=== PATIENT | male | born 1955 | race American Indian/Alaskan Native ===

== ENCOUNTER 2018-10-02 05:24 | Inpatient (IN) | payer MEDICARE, BC ==
[2018-10-01 15:20] LABS: BASOPHILS % (AUTO) 0.5 % (0-1); EOSINOPHILS # (AUTO) 0.2 X10'3 (0-0.9); EOSINOPHILS % (AUTO) 2.7 % (0-6); HEMATOCRIT 40.8 % (42.0-52.0); HEMOGLOBIN 13.8 g/dl (14.0-17.9); LYMPHOCYTES # (AUTO) 2.5 X10'3 (1.1-4.8); LYMPHOCYTES % (AUTO) 30.4 % (21-51); MEAN CORPUSCULAR HEMOGLOBIN 29.2 PG (27.0-31.0); MEAN CORPUSCULAR HGB CONC 33.9 % (33.0-36.5); MEAN CORPUSCULAR VOLUME 86.2 FL (78-98); MEAN PLATELET VOLUME 6.9 FL (7.4-10.4); MONOCYTES # (AUTO) 0.5 X10'3 (0-0.9); MONOCYTES % (AUTO) 5.6 % (2-12); NEUTROPHILS # (AUTO) 4.9 X10'3 (1.8-7.7); NEUTROPHILS % (AUTO) 60.8 % (42-75); PLATELET COUNT 281 X10'3 (140-440); RED BLOOD COUNT 4.74 X10'6 (4.70-6.10); RED CELL DISTRIBUTION WIDTH 14.2 % (11.5-14.5); WHITE BLOOD COUNT 8.1 X10'3 (4.5-11.0)
[2018-10-01 15:39] LABS: ALANINE AMINOTRANSFERASE 28 U/L (12-78); ALBUMIN 3.6 G/DL (3.4-5.0); ALBUMIN/GLOBULIN RATIO 0.9 (1.1-1.5); ALKALINE PHOSPHATASE 108 IU/L (46-116); ANION GAP 7 (8-16); ASPARTATE AMINO TRANSFERASE 16 U/L (10-37); BILIRUBIN,TOTAL 0.5 MG/DL (0.1-1.0); BLOOD UREA NITROGEN 13 MG/DL (7-18); BUN/CREATININE RATIO 14.6 (5.4-32.0); CALCIUM 9.2 MG/DL (8.5-10.1); CHLORIDE 105 MMOL/L (99-107); CREATININE 0.89 MG/DL (0.60-1.10); GLUCOSE 87 MG/DL (70-104); POTASSIUM 3.7 MMOL/L (3.5-5.1); SODIUM 140 MMOL/L (135-145); TOTAL CARBON DIOXIDE 27.9 MMOL/L (24-32); TOTAL PROTEIN 7.6 G/DL (6.4-8.2); eGFR 87 ML/MIN
[2018-10-01 16:15] LABS: HEMOGLOBIN A1C 7.3 % (4.5-6.2)
[~2018-10-02] VITALS: Ht 170.2 cm; Wt 79.4 kg
[2018-10-02] VITALS (21 sets, daily range): BP systolic 98–172; BP diastolic 47–92
[~2018-10-02 05:24] MED LIST: CELE-193 PO; CHOL400C8 PO; DEXT20TA6 PO; ESOM40CA30 PO; INSU100C4 SQ; LEVO75TA PO; OMEG1CAP PO; TEST5GEL2 TOP; ringers solution, lacted 1,000 ML IV SCH
[2018-10-02] MEDS ORDERED: famotidine 20mg tablet PO ONE (05:30)
[2018-10-02] MEDS ORDERED: dextrose 50%-water 50ml dispensing syringe IV ONE (05:43)
[2018-10-02] MEDS ORDERED: vancomycin inj 1,500 MG in normal saline 300ml IV soln IV ONE (05:46)
[2018-10-02] MEDS ORDERED: cefazolin/dext.iso 2gm/100 ML IV ONE (05:46)
[2018-10-02] MEDS ORDERED: ROPIVAcaine 0.5% (5mg/ml) 30ml vial ONE ×2 (07:03→07:43)
[2018-10-02] MEDS ORDERED: vancomycin 1,000mg inj ONE ×2 (07:03→08:54)
[2018-10-02] MEDS ORDERED: ketorolac trometh. 30mg/ml inj. ONE (07:03)
[2018-10-02] MEDS ORDERED: tranexamic acid inj. 800 MG in normal saline 100ml IV soln 92 ML IV ONE ×2 (07:30→08:30)
[2018-10-02] MEDS ORDERED: cloNIDine hcl/PF 100mcg/ml inj ONE (07:35)
[2018-10-02] MEDS ORDERED: fentaNYL/PF 50MCG/1 ML 2ML syringe ONE (07:40)
[2018-10-02] MEDS ORDERED: propofol inj 20 ML IV ONE (07:40)
[2018-10-02] MEDS ORDERED: MIDAZolam 5mg/5ml vial ONE (07:40)
[2018-10-02] MEDS ORDERED: sevoflurane 250ml liquid IH ONE (07:49)
[2018-10-02] MEDS ORDERED: ringers solution, lacted 1,000 ML IV SCH (08:42)
[2018-10-02] MEDS ORDERED: morphine 4 MG/ML inj SYRINge IV PRN ×2 (08:45)
[2018-10-02] MEDS ORDERED: ondansetron/PF 4mg/2ml inj IV PRN (08:45)
[2018-10-02] MEDS ORDERED: proCHLORperazine 10 MG/2 ml inj IV PRN (08:45)
[2018-10-02] MEDS ORDERED: meperidine/PF 25mg/ml syringe IV PRN ×3 (08:45)
[2018-10-02] MEDS ORDERED: diphenhydrAMINE 25mg capsule PO PRN ×2 (10:15)
[2018-10-02] MEDS ORDERED: INSULIN ASPART SQ SCH (10:15)
[2018-10-02] MEDS ORDERED: HYDROmorphone 1 mg/ml syringe IV PRN ×2 (10:15)
[2018-10-02] MEDS ORDERED: acetaminophen 325mg tablet PO PRN (10:15)
[2018-10-02] MEDS ORDERED: bisacodyl 10mg suppository rectal RC PRN (10:15)
[2018-10-02] MEDS ORDERED: magnesium hydroxide 30ml (MOM) UD suspension PO PRN (10:15)
[2018-10-02] MEDS ORDERED: oxyCODONE IR 5mg (immed. release) tablet PO PRN (10:15)
[2018-10-02] MEDS ORDERED: AMPH25CA7 PO (10:47)
[2018-10-02] MEDS ORDERED: INSULIN PUMP (10:51)
[2018-10-02] MEDS: insulin pump.resvr SQ SCH ×3 (12:00→21:11)
[2018-10-02] MEDS ORDERED: tranexamic acid inj. 800 MG in normal saline 100ml IV soln 100 ML IV ONE (13:15)
[2018-10-02] MEDS: gabapentin 300mg capsule PO SCH ×2 (13:21→21:08)
[2018-10-02] MEDS: ketorolac tromethamine 15mg/ml inj. IV SCH ×2 (13:22→20:03)
[2018-10-02] MEDS: acetaminophen 325mg tablet PO SCH ×2 (14:00→20:00)
[2018-10-02] MEDS: ondansetron/PF 4mg/2ml inj IV PRN (14:16)
[2018-10-02] MEDS: ceFAZolin 1GM/D5W- ADD-VANTAGE 50 ML IV SCH ×2 (16:05→23:58)
[2018-10-02] MEDS: potassium cl 20mEq in 1/2 NS 1,000 ML IV SCH ×2 (16:05→18:11)
[2018-10-02] MEDS ORDERED: vancomycin/NS 1 GM ADD-VANTAGE 250 ML IV SCH (20:00)
[2018-10-02] MEDS: sennosides 8.6mg tablet PO SCH (21:09)
[2018-10-02] MEDS ORDERED: glucagon, human recombinant 1mg kit SUBCUT PRN (23:15)
[2018-10-02] MEDS ORDERED: dextrose ORAL solution 15 GM/59 ML bottle PO PRN ×2 (23:15)
[2018-10-02] MEDS ORDERED: dextrose 50%-water 50ml dispensing syringe IV PRN ×2 (23:15)
[2018-10-03] MEDS: oxyCODONE IR 5mg (immed. release) tablet PO PRN ×2 (00:03→05:27)
[2018-10-03] MEDS: potassium cl 20mEq in 1/2 NS 1,000 ML IV SCH ×3 (01:49→18:11)
[2018-10-03] MEDS: ketorolac tromethamine 15mg/ml inj. IV SCH ×2 (01:52→10:41)
[2018-10-03] MEDS: acetaminophen 325mg tablet PO SCH ×4 (01:53→19:36)
[2018-10-03 02:00] VITALS: BP 136/63
[2018-10-03 06:00] VITALS: BP 108/60
[2018-10-03 06:07] LABS: BASOPHILS % (AUTO) 0.4 % (0-1); EOSINOPHILS # (AUTO) 0.2 X10'3 (0-0.9); EOSINOPHILS % (AUTO) 2.4 % (0-6); HEMATOCRIT 33.1 % (42.0-52.0); HEMOGLOBIN 10.9 g/dl (14.0-17.9); LYMPHOCYTES # (AUTO) 2.1 X10'3 (1.1-4.8); LYMPHOCYTES % (AUTO) 22.9 % (21-51); MEAN CORPUSCULAR HGB CONC 32.9 % (33.0-36.5); MEAN CORPUSCULAR VOLUME 88.2 FL (78-98); MEAN PLATELET VOLUME 7.2 FL (7.4-10.4); MONOCYTES # (AUTO) 0.7 X10'3 (0-0.9); MONOCYTES % (AUTO) 8.2 % (2-12); NEUTROPHILS # (AUTO) 6.1 X10'3 (1.8-7.7); NEUTROPHILS % (AUTO) 66.1 % (42-75); PLATELET COUNT 219 X10'3 (140-440); RED BLOOD COUNT 3.75 X10'6 (4.70-6.10); RED CELL DISTRIBUTION WIDTH 13.8 % (11.5-14.5); WHITE BLOOD COUNT 9.2 X10'3 (4.5-11.0)
[2018-10-03 06:31] LABS: ANION GAP 4 (8-16); CHLORIDE 104 MMOL/L (99-107); SODIUM 138 MMOL/L (135-145); TOTAL CARBON DIOXIDE 29.6 MMOL/L (24-32)
[2018-10-03] MEDS: insulin pump.resvr SQ SCH ×4 (07:00→21:00)
[2018-10-03] MEDS: levoTHYROXINE 125mcg tablet PO SCH (07:00)
[2018-10-03] MEDS: pantoprazole 40mg Tablet.DR PO SCH (07:30)
[2018-10-03] MEDS: ondansetron/PF 4mg/2ml inj IV PRN (07:43)
[2018-10-03 10:00] VITALS: BP 105/44
[2018-10-03] MEDS: gabapentin 300mg capsule PO SCH ×3 (10:42→20:55)
[2018-10-03] MEDS: omega-3 acid ethyl esters 1GM capsule PO SCH (10:42)
[2018-10-03] MEDS: cholecalciferol (vitamin D) 400 unit tablet PO SCH (10:43)
[2018-10-03] MEDS: aspirin 325mg tablet PO SCH (10:43)
[2018-10-03] MEDS ORDERED: traMADol 50MG tablet PO PRN (10:50)
[2018-10-03] MEDS ORDERED: proCHLORperazine 10 MG/2 ml inj IV ONE (10:50)
[2018-10-03] MEDS: traMADol 50MG tablet PO PRN ×2 (14:29→19:35)
[2018-10-03 14:30] VITALS: BP 109/58
[2018-10-03 17:00] VITALS: BP 140/62
[2018-10-03] MEDS ORDERED: celeCOXIB 100mg capsule PO SCH (20:00)
[2018-10-03] MEDS: sennosides 8.6mg tablet PO SCH (20:55)
[2018-10-03 22:00] VITALS: BP 130/65
[2018-10-04] MEDS: acetaminophen 325mg tablet PO SCH ×2 (02:00→07:20)
[2018-10-04 06:13] LABS: BASOPHILS % (AUTO) 0.3 % (0-1); EOSINOPHILS # (AUTO) 0.3 X10'3 (0-0.9); EOSINOPHILS % (AUTO) 2.5 % (0-6); HEMATOCRIT 32.1 % (42.0-52.0); HEMOGLOBIN 10.7 g/dl (14.0-17.9); LYMPHOCYTES # (AUTO) 2.1 X10'3 (1.1-4.8); LYMPHOCYTES % (AUTO) 20.6 % (21-51); MEAN CORPUSCULAR HEMOGLOBIN 29.1 PG (27.0-31.0); MEAN CORPUSCULAR HGB CONC 33.2 % (33.0-36.5); MEAN CORPUSCULAR VOLUME 87.7 FL (78-98); MEAN PLATELET VOLUME 6.9 FL (7.4-10.4); MONOCYTES # (AUTO) 1.1 X10'3 (0-0.9); MONOCYTES % (AUTO) 10.4 % (2-12); NEUTROPHILS # (AUTO) 6.7 X10'3 (1.8-7.7); NEUTROPHILS % (AUTO) 66.2 % (42-75); PLATELET COUNT 199 X10'3 (140-440); RED BLOOD COUNT 3.66 X10'6 (4.70-6.10); RED CELL DISTRIBUTION WIDTH 13.6 % (11.5-14.5); WHITE BLOOD COUNT 10.2 X10'3 (4.5-11.0)
[2018-10-04 06:15] VITALS: BP 136/67
[2018-10-04] MEDS: omega-3 acid ethyl esters 1GM capsule PO SCH (07:19)
[2018-10-04] MEDS: cholecalciferol (vitamin D) 400 unit tablet PO SCH (07:20)
[2018-10-04] MEDS: levoTHYROXINE 125mcg tablet PO SCH (07:20)
[2018-10-04] MEDS: aspirin 325mg tablet PO SCH (07:20)
[2018-10-04] MEDS: pantoprazole 40mg Tablet.DR PO SCH (07:20)
[2018-10-04] MEDS: gabapentin 300mg capsule PO SCH (07:20)
[2018-10-04] MEDS: traMADol 50MG tablet PO PRN (07:21)
[2018-10-04] MEDS: insulin pump.resvr SQ SCH (08:00)
[2018-10-04] MEDS ORDERED: celeCOXIB 100mg capsule PO SCH (08:00)
[2018-10-04 09:00] VITALS: BP 113/65
[2018-10-04] MEDS ORDERED: acetaminophen 325mg tablet PO PRN (10:15)
== END 2018-10-04 09:30 | disposition home or self-care (01) | DRG 483 ==
LOC: PAS IN 05:24 → EDSTATUS 08:15 → ORTHO 4S 11:35
PROVIDERS: ADMIT Orthopaedic Surgery; ATTEND Orthopaedic Surgery
PROC: 0LS40ZZ Reposition Left Upper Arm Tendon, Open Approach (ICD-10-PCS; 2018-10-02)
PROC: 3E0T3BZ Introduction of Anesthetic Agent into Peripheral Nerves and Plexi, Percutaneous Approach (ICD-10-PCS; 2018-10-02)
PROC: 0RRK0JZ Replacement of Left Shoulder Joint with Synthetic Substitute, Open Approach (ICD-10-PCS; principal; 2018-10-02 07:49)
DX: M19.012 Primary osteoarthritis, left shoulder (principal); G89.29 Other chronic pain; M65.9 Synovitis and tenosynovitis, unspecified; Z79.899 Other long term (current) drug therapy
CPT/HCPCS: 36415; 80051; 80053; 82947; 82948; 83036; 84443; 85025; 87070; 97110; 97116; 97162; 97530; A4565; A7000; C1713; C1776; G0378; J0690; J0735; J0780; J1170; J1885; J2250; J2405; J2704; J2795; J3010; J3370; J7030; J7040; J7120

== ENCOUNTER 2018-12-16 23:33 | Emergency (ER) | payer MEDICARE, BC ==
[~2018-12-16] VITALS: Ht 170.2 cm; Wt 84.1 kg
[~2018-12-16 23:33] MED LIST changes: +AMPH25CA7 PO; -DEXT20TA6 PO; -INSU100C4 SQ; +INSULIN PUMP; -ringers solution, lacted 1,000 ML IV SCH
[2018-12-17 02:15] LABS: ALANINE AMINOTRANSFERASE 28 U/L (12-78); ALBUMIN 3.6 G/DL (3.4-5.0); ALBUMIN/GLOBULIN RATIO 0.9 (1.1-1.5); ALKALINE PHOSPHATASE 114 IU/L (46-116); ANION GAP 10 (8-16); ASPARTATE AMINO TRANSFERASE 20 U/L (10-37); BILIRUBIN,TOTAL 0.4 MG/DL (0.1-1.0); BLOOD UREA NITROGEN 14 MG/DL (7-18); BUN/CREATININE RATIO 15.4 (5.4-32.0); CALCIUM 8.9 MG/DL (8.5-10.1); CHLORIDE 103 MMOL/L (99-107); CREATININE 0.91 MG/DL (0.60-1.10); GLUCOSE 77 MG/DL (70-104); POTASSIUM 4.1 MMOL/L (3.5-5.1); SODIUM 139 MMOL/L (135-145); TOTAL CARBON DIOXIDE 25.9 MMOL/L (24-32); TOTAL PROTEIN 7.6 G/DL (6.4-8.2); eGFR 84 ML/MIN
[2018-12-17 02:23] LABS: BASOPHILS % (AUTO) 0.5 % (0-1); EOSINOPHILS # (AUTO) 0.3 X10'3 (0-0.9); EOSINOPHILS % (AUTO) 3.9 % (0-6); HEMATOCRIT 43.1 % (42.0-52.0); HEMOGLOBIN 14.3 g/dl (14.0-17.9); LYMPHOCYTES # (AUTO) 3.3 X10'3 (1.1-4.8); LYMPHOCYTES % (AUTO) 44.4 % (21-51); MEAN CORPUSCULAR HEMOGLOBIN 28.7 PG (27.0-31.0); MEAN CORPUSCULAR HGB CONC 33.2 % (33.0-36.5); MEAN CORPUSCULAR VOLUME 86.5 FL (78-98); MEAN PLATELET VOLUME 6.7 FL (7.4-10.4); MONOCYTES # (AUTO) 0.6 X10'3 (0-0.9); MONOCYTES % (AUTO) 7.7 % (2-12); NEUTROPHILS # (AUTO) 3.2 X10'3 (1.8-7.7); NEUTROPHILS % (AUTO) 43.5 % (42-75); PLATELET COUNT 303 X10'3 (140-440); RED BLOOD COUNT 4.99 X10'6 (4.70-6.10); RED CELL DISTRIBUTION WIDTH 14.3 % (11.5-14.5); WHITE BLOOD COUNT 7.4 X10'3 (4.5-11.0)
[2018-12-17 02:50] VITALS: BP 180/121
== END 2018-12-17 02:52 | disposition home or self-care (01) ==
LOC: ER 23:34
DX: I10 Essential (primary) hypertension (principal); E10.9 Type 1 diabetes mellitus without complications; Z98.890 Other specified postprocedural states; Z79.899 Other long term (current) drug therapy
CPT/HCPCS: 36415; 71045; 80053; 83735; 84484; 85025; 93005; 99284